=== PATIENT | male | born 1970 | race Caucasian/White ===

== ENCOUNTER 2018-06-21 10:52 | Day surgery (SDC) | payer OTHER ==
[~2018-06-21] VITALS: Ht 182.9 cm; Wt 103.0 kg
[~2018-06-21 10:52] MED LIST: ACYC-113 PO; GRAN1PAT TD; LENA10CA PO; LEVO750T26 PO; METO10TA82 PO; ONDA4TAB7 PO; OXYC5CAP2 PO; TEMA15CA PO
[2018-06-21] MEDS ORDERED: LIDOCAINE-MPF 1%, 5ML ONE (11:12)
[2018-06-21 11:17] VITALS: BP 141/85
[2018-06-21] MEDS ORDERED: SODIUM CHLORIDE 0.9% 1,000 ML IV SCH (11:19)
[2018-06-21] MEDS ORDERED: FLUMAZENIL 0.1 MG/1 ML, 5ML ONE (11:41)
[2018-06-21] MEDS ORDERED: FENTANYL PF 100 MCG/2ML ONE (11:41)
[2018-06-21] MEDS ORDERED: MIDAZOLAM 1 MG/ML, 5ML ONE (11:41)
[2018-06-21] MEDS ORDERED: NALOXONE 1 MG/ML, 2ML ONE (11:41)
[2018-06-21 11:53] LABS: BASOPHILS # (AUTO) 0.01 x10^3/uL (0-0.1); BASOPHILS % (AUTO) 0 % (0-1); EOSINOPHILS # (AUTO) 0.04 x10^3/uL (0-0.4); EOSINOPHILS % (AUTO) 1 % (1-7); LYMPHOCYTES # (AUTO) 1.26 x10^3/uL (1-3.4); LYMPHOCYTES % (AUTO) 27 % (22-44); MD NO; MEAN CORPUSCULAR HEMOGLOBIN 31.9 pg (27.5-34.5); MEAN CORPUSCULAR HGB CONC 33.6 g/dL (33.2-36.2); MEAN PLATELET VOLUME 7.4 fL (7.4-10.4); MONOCYTES # (AUTO) 0.32 x10^3/uL (0.2-0.8); MONOCYTES % (AUTO) 7 % (2-9); NEUTROPHILS # (AUTO) 3.08 x10^3/uL (1.8-6.8); NEUTROPHILS % (AUTO) 66 % (42-75); PLATELET COUNT 191 x10^3/uL (130-400); RED BLOOD COUNT 4.28 x10^6/uL (4.38-5.82); RED CELL DISTRIBUTION WIDTH 14.3 % (9.4-14.8)
== END 2018-06-21 13:25 | disposition home or self-care (01) ==
LOC: OUT 10:52
PROVIDERS: ATTEND Internal Medicine Hematology & Oncology
DX: C90.00 Multiple myeloma not having achieved remission (principal); Z98.890 Other specified postprocedural states; Z88.1 Allergy status to other antibiotic agents; Z88.0 Allergy status to penicillin
CPT/HCPCS: 36415; 38222; 77012; 85025; 85060; 85097; 88237; 88264; 88280; 88305; 88311; 88313; 88360; 99156; 99157; J2250; J3010; J2310